=== PATIENT | female | born 1985 | race Caucasian/White ===

== ENCOUNTER 2019-01-15 05:37 | Day surgery (SDC) | payer MEDICAID ==
[~2019-01-15] VITALS: Ht 157.5 cm; Wt 86.2 kg
[~2019-01-15 05:37] MED LIST: ALBU18HF2 IH
[2019-01-15] MEDS ORDERED: LACTATED RINGERS 1,000 ML IV SCH (06:00)
[2019-01-15] MEDS ORDERED: BUPIVACAINE HCL/PF 0.5% (5MG/ML) 10ML ONE (06:50)
[2019-01-15] MEDS ORDERED: BACITRACIN 50,000 UNITS/VIAL ONE (06:50)
[2019-01-15 07:07] LABS: UCG SCREEN NEGATIVE
[2019-01-15] MEDS ORDERED: FENTANYL CITRATE/PF 50MCG/ML 2ML VIAL ONE (07:26)
[2019-01-15] MEDS ORDERED: MIDAZOLAM HCL 2 MG/2 ML VIAL ONE (07:27)
[2019-01-15] MEDS ORDERED: PROPOFOL 200MG/20ML VIAL IV ONE (07:27)
[2019-01-15] MEDS ORDERED: DEXAMETHASONE 4MG/ML 1ML VIAL ONE (07:28)
[2019-01-15] MEDS ORDERED: ONDANSETRON HCL 4MG/2ML INJ ONE (07:28)
[2019-01-15] MEDS ORDERED: LIDOCAINE HCL 1% 20ML VIAL (Pyxis) INJ ONE (07:48)
[2019-01-15] MEDS ORDERED: ROCURONIUM BROMIDE 10MG/ML VIAL 5ML IV ONE ×2 (07:50→08:33)
[2019-01-15] MEDS ORDERED: MEPERIDINE HCL/PF 25MG/ML CPJ IV PRN (08:45)
[2019-01-15] MEDS ORDERED: ONDANSETRON HCL 4MG/2ML INJ IV PRN (08:45)
[2019-01-15] MEDS ORDERED: LABETALOL 5MG/ML SYR 20 MG/4 ML SYRINGE IV PRN (08:45)
[2019-01-15] MEDS ORDERED: GLYCOPYRROLATE 0.2 MG/ML 2ML VIAL ONE (09:28)
[2019-01-15] MEDS ORDERED: NEOSTIGMINE METHYLSULFATE 1MG/ML 10 ML VIAL ONE (09:28)
[2019-01-15] MEDS ORDERED: SKIN ADHESIVE 0.7 GM EA TOP ONE (09:31)
[2019-01-15] MEDS ORDERED: IPRATROPIUM/ALBUTEROL 0.5-3(2.5)MG/3ML NEB ONE (10:08)
[2019-01-15] MEDS ORDERED: IPRATROPIUM BROMIDE (0.02%) 0.5MG/2.5ML NEB HHN SCH (10:15)
[2019-01-15] MEDS: HYDROMORPHONE HCL/PF 2MG/ML CPJ IV PRN ×2 (10:16→10:52)
[2019-01-15] MEDS ORDERED: HYDROCODONE/ACETAMINOPHEN 5/325MG TABLET PO SCH (12:15)
[2019-01-15] MEDS ORDERED: HYDROCODONE/ACETAMINOPHEN 5/325MG TABLET ONE (12:20)
[2019-01-15 12:21] VITALS: BP 119/70
== END 2019-01-15 11:50 | disposition home or self-care (01) ==
LOC: OR 05:37
PROVIDERS: ATTEND Specialist
DX: K43.9 Ventral hernia without obstruction or gangrene (principal); J45.909 Unspecified asthma, uncomplicated; Z79.899 Other long term (current) drug therapy; Z98.891 History of uterine scar from previous surgery
CPT/HCPCS: 49560; 49568; 81025; J1100; J1170; J2250; J2405; J2704; J2710; J3010; J3490; J7620

== ENCOUNTER 2022-10-28 00:44 | Emergency (ER) | payer MEDICAID ==
[~2022-10-28] VITALS: Ht 157.5 cm; Wt 94.5 kg
[2022-10-28 01:18] VITALS: BP 132/91; RESP 16; TEMP 99.4; O2SAT 98
[2022-10-28 01:19] VITALS: PULSE 67
[2022-10-28 03:01] LABS: BASOPHILS % 0.5 % (0.0-2.0); EOSINOPHILS % 0.9 % (0.0-5.0); LYMPHOCYTES % 14.4 % (20.0-50.0); MEAN CORPUSCULAR HEMOGLOBIN 29.9 pg (28.0-32.0); MEAN CORPUSCULAR HGB CONC 33.3 g/dL (31.0-37.0); MEAN CORPUSCULAR VOLUME 89.8 fL (81.0-99.0); NEUTROPHILS % 80.2 % (40.0-76.0); PLATELET 319 x1000/uL (130-400); RED BLOOD CELL COUNT 4.01 mill/uL (4.2-5.4); RED CELL DISTRIBUTION WIDTH 13.1 % (11.6-14.6); WHITE BLOOD COUNT 8.1 x1000/uL (4.5-11.0)
[2022-10-28 03:02] LABS: CHLORIDE 107 mEq/L (98-107); POTASSIUM 3.7 mEq/L (3.5-5.1); SODIUM 139 mEq/L (136-145)
[2022-10-28 03:51] LABS: ALANINE AMINOTRANSFERASE 24 IU/L (13-61); ALBUMIN 3.9 g/dL (3.4-5.0); ASPARTATE AMINOTRANSFERASE 13 IU/L (15-37); BILIRUBIN TOTAL 0.3 mg/dL (0.1-1.0); CALCIUM 9.1 mg/dL (8.5-10.1); CARBON DIOXIDE 23 mEq/L (21-32); CREATININE 0.4 mg/dL (0.6-1.3); GLUCOSE 126 mg/dL (70-105); INDEX HEMOLYSI 1 (1-3); INDEX ICTERIC 1 (1-4); INDEX LIPEMIC 1 (1-3); PROTEIN TOTAL 7.7 g/dL (6.0-8.3); TROPONIN I HIGH SENSITIVITY 4 ng/L (<54); UREA NITROGEN BLOOD 12 mg/dL (7-21)
[2022-10-28] MEDS ORDERED: KETOROLAC 60MG/2ML VIAL IM ONE (04:15)
[2022-10-28] MEDS ORDERED: KETOROLAC 30MG/ML VIAL IV ONE (04:15)
[2022-10-28] MEDS ORDERED: NAPR-1176 MT (04:43)
== END 2022-10-28 05:17 | disposition home or self-care (01) ==
LOC: ER 00:44
DX: R20.2 Paresthesia of skin (principal); J45.909 Unspecified asthma, uncomplicated
CPT/HCPCS: 80053; 85025; 84484; 36415; 93005; 96374; 99284; J1885; Z7610 ×2